=== PATIENT | female | born 1955 ===

== ENCOUNTER 2023-04-03 08:19 | Outpatient (CLI) | payer OTHER ==
[~2023-04-03 08:19] MED LIST: AVALIDE 150-12.1 TA1 PO; GLUCOVANCE 5/501 TAB PO; SYNTHROID200 MCG PO; [UNRECOGNIZED DRUG - OTHER]
== END 2023-04-03 08:26 | disposition home or self-care (01) ==
LOC: TOM 08:19
DX: Z12.11 Encounter for screening for malignant neoplasm of colon (principal)

== ENCOUNTER 2023-04-10 10:16 | Outpatient (CLI) | payer OTHER | END 2023-04-10 10:19 | disposition home or self-care (01) | LOC: SONOGRAMA 10:16 | DX: K42.9 Umbilical hernia without obstruction or gangrene (principal) ==